=== PATIENT | female | born 2000 | race Caucasian/White ===

== ENCOUNTER → 2023-05-18 15:22 | Outpatient (CLI) | payer OTHER, SELFPAY | PROVIDERS: Visit Provider Physician Assistant | DX: N39.0 Urinary tract infection, site not specified (principal) | CPT/HCPCS: 87077; 87086; 87186 ==

== ENCOUNTER 2024-01-07 18:23 | Emergency (ER) | payer OTHER, SELFPAY ==
[2024-01-07] VITALS (7 sets, daily range): BP systolic 124–141; BP diastolic 84–106; PULSE 64–79; RESP 14–18; TEMP 36.7; O2SAT 97–99; BMI 31.9
[2024-01-07 18:57] LABS: Add Manual Diff / Slide Review NO; Basophils Absolute Auto 100 /uL (0-100); Basophils Percent Auto 0.7 % (0-2); Eosinophils Absolute Auto 100 /uL (0-450); Eosinophils Percent Auto 1.3 % (2-4); Hematocrit 37.8 % (36-46); Lymphocytes Absolute Auto 2000 /uL (1100-4500); Lymphocytes Percent Auto 18.2 % (25-40); Mean Corpuscular HGB Conc 34.4 % (30-36); Mean Corpuscular Hemoglobin 28.7 PG (26-34); Mean Corpuscular Volume 83.4 fL (80-100); Monocytes Absolute Auto 1200 /uL (0-900); Monocytes Percent Auto 10.6 % (3-14); Neutrophils Absolute Auto 7700 /uL (1500-7000); Neutrophils Percent Auto 69.2 % (50-75); Platelet Count 295 X10^3/uL (150-400); Red Blood Cell Count 4.53 X10^6/uL (4.0-5.2); Red Cell Distribution Width 13.1 % (11.6-14.8); White Blood Cell Count 11.1 X10^3/uL (4.5-11.0)
[2024-01-07 19:11] LABS: Alanine Aminotransferase 21 IU/L (<35); Albumin 4.7 g/dL (3.5-5.0); Albumin Globulin Ratio 1.5 (1.0-2.8); Alkaline Phosphatase 68 U/L (38-126); Aspartate Aminotransferase 29 IU/L (14-36); BUN Creatinine Ratio 13.7 (6-22); Bilirubin Total 0.4 mg/dL (0.2-1.3); Blood Urea Nitrogen 10 mg/dL (7-17); Calcium 8.9 mg/dL (8.4-10.2); Carbon Dioxide 25 mmol/L (22-32); Chloride 107 mmol/L (98-107); Estimated Glomerular Filt Rate > 60 mL/min (>60); Globulin 3.2 g/dL (1.7-4.1); Glucose 89 mg/dL (70-100); HEMOLYSIS < 15 (0-50); Lipase 64 U/L (23-300); Sodium 138 mmol/L (137-145); Total Protein 7.9 g/dL (6.3-8.2)
--- NOTE | 2024-01-08 02:42 | ED_ITS ---
HPI - General Adult General Chief complaint: Abdominal Pain Stated complaint: thinks galbladder or appendix, pain Source: patient Mode of arrival: Ambulatory History of Present Illness HPI narrative: 23-year-old female complains of right lower quadrant, left lower quadrant, right upper quadrant discomfort since yesterday, also some right lower back pain. Some nausea without emesis. No loose stools, no black or red stools. Denies vaginal discharge or malodorous discharge. Last menstrual period approximately 1 week and a half ago on time and normal. She does not believe herself to be . She denies injury, trauma, new activities. She has not really tried any medication to help the pain. She denies frequency of urination, change in urination, dark or red color of urine. She denies cough, shortness of breath Related Data Previous Rx's Medication Instructions Recorded phenazopyridine 200 mg tablet 200 mg PO TID PRN pain 6 doses #6 05/18/23 (Pyridium) tabs erythromycin 5 mg/gram (0.5 %) eye 1 applic EYE-BOTH Q6H #3.5 grams 10/18/23 ointment Allergies Allergy/AdvReac Type Severity Reaction Status Date / Time No Known Drug Allergies Allergy Unverified 10/18/23 10:35 Review of Systems Review of Systems ROS Unobtainable: All systems reviewed & are unremarkable except as noted in HPI and below Patient History Social History Smoking Status: Unknown if ever smoked Smoking Status: Unknown if ever smoked alcohol intake frequency: 0-2 drinks per day Substance Use Type: does not use Exam Narrative Exam Narrative: GENERAL: Well-developed patient, in mild distress. HEAD: Atraumatic. Normocephalic. EYES: Pupils equal round and reactive. Extraocular motions intact. No scleral icterus. No injection or drainage. ENT: Nose without bleeding, purulent drainage. Throat without erythema, tonsillar hypertrophy or exudate. Airway patent. NECK: Trachea midline. Non tender CARDIOVASCULAR: Regular rate and rhythm without murmurs, gallops, or rubs. RESPIRATORY: Clear to auscultation. Breath sounds equal bilaterally. No wheezes, rales, or rhonchi. GASTROINTESTINAL: Abdomen soft, non-tender, nondistended. No guarding or rebound tenderness. Abdomen nonrigid. Able to actively sit up and lie back without difficulty or abdominal distress EXTREMITIES: No edema or joint tenderness. BACK: Nontender without deformity or crepitance. No flank tenderness. NEURO: AOx3. SKIN: No rash or erythema of visible areas Initial Vital Signs Initial Vital Signs: Vital Signs Blood Pressure 141/106 H 01/07/24 18:31 Course Orders Ordered: Discontinued Medications Ondansetron HCl (Ondansetron 4 Mg/2 Ml Inj) 4 mg IV NOW PRN PRN Reason: Nausea And Vomiting Vital Signs Vital signs: Vital Signs - 8 hr 01/07/24 19:30 01/07/24 20:32 01/07/24 20:37 Pulse Rate 64 Respiratory Rate 18 Blood Pressure 124/84 Pulse Oximetry 97 99 Medical Decision Making Differential Diagnosis Differential Diagnosis: UTI, ureteral stone, appendicitis, colitis, gallbladder disease, ulcer Medical Records Medical records reviewed: Yes I reviewed the patient's medical records. Lab Data Lab results reviewed: Yes I reviewed the patient's lab results. 01/07/24 18:44 01/07/24 18:44 Labs: Lab Results 01/07/24 Range/Units 18:44 WBC 11.1 H (4.5-11.0) X10^3/uL RBC 4.53 (4.0-5.2) X10^6/uL Hgb 13.0 (12.0-16.0) g/dL Hct 37.8 (36-46) % MCV 83.4 (80-100) fL MCH 28.7 (26-34) PG MCHC 34.4 (30-36) % RDW 13.1 (11.6-14.8) % Plt Count 295 (150-400) X10^3/uL Neut % (Auto) 69.2 (50-75) % Lymph % (Auto) 18.2 L (25-40) % [place]ley % (Auto) 10.6 (3-14) % Eos % (Auto) 1.3 L (2-4) % Baso % (Auto) 0.7 (0-2) % Neut # (Auto) 7700 H (2498-4964) /uL Lymph # (Auto) 2000 (4720-8017) /uL Donley # (Auto) 1200 H (0-900) /uL Eos # (Auto) 100 (0-450) /uL Baso # (Auto) 100 (0-100) /uL Sodium 138 (137-145) mmol/L Potassium 4.0 (3.4-5.1) mmol/L Chloride 107 (98-107) mmol/L Carbon Dioxide 25 (22-32) mmol/L BUN 10 (7-17) mg/dL Creatinine 0.73 (0.52-1.04) mg/dL Estimated GFR > 60 (>60) mL/min BUN/Creatinine Ratio 13.7 (6-22) Glucose 89 (70-100) mg/dL Calcium 8.9 (8.4-10.2) mg/dL Total Bilirubin 0.4 (0.2-1.3) mg/dL AST 29 (14-36) IU/L ALT 21 (<35) IU/L Alkaline Phosphatase 68 (38-126) U/L Total Protein 7.9 (6.3-8.2) g/dL Albumin 4.7 (3.5-5.0) g/dL Globulin 3.2 (1.7-4.1) g/dL Albumin/Globulin Ratio 1.5 (1.0-2.8) Lipase 64 (23-300) U/L Point of Care Testing Test Results Negative Urine Dip Bedside Urine Glucose Negative Bedside Urine Bilirubin - Negative Bedside Urine Ketone - Negative Urine Specific [place] 1.005 Bedside Urine Occult Blood - Negative Bedside Urine pH 6.5 Bedside Urine Protein - Negative Bedside Urine Urobilinogen - Negative Bedside Urine Nitrite - Negative Bedside Urine Leukocytes - Negative Esterase Point of care testing: Point of Care Testing Test Results Negative Urine Dip Bedside Urine Glucose Negative Bedside Urine Bilirubin - Negative Bedside Urine Ketone - Negative Urine Specific [place] 1.005 Bedside Urine Occult Blood - Negative Bedside Urine pH 6.5 Bedside Urine Protein - Negative Bedside Urine Urobilinogen - Negative Bedside Urine Nitrite - Negative Bedside Urine Leukocytes - Negative Esterase [facility] Narrative Medical decision making narrative: 23-year-old female with right lower left lower and right upper quadrant discomfort, initially agreeable to workup, labs sent. However before any results patient decided she would leave against medical advice. Patient seemed to have capacity for making decisions, seem reasonable in her tent to get back to home worse there is no care for other household members, seemed to have good insight into risks of refusal, which could include worsening of condition and injury or worsened condition, was aware that she could return for any change worsening symptoms or any concerns. Patient left against medical advice. Additional Information: Labs reviewed retrospectively as patient had left before any discussion of results. HCG negative. White blood cell count 33516, hemoglobin normal, CMP unremarkable. No imaging, as patient left against medical advice before any test results were available, and options of imaging could be discussed Discharge Plan Departure Patient Disposition: Left Against Medical Advice Clinical Impression: Patient left before treatment completed Prescriptions: No Action phenazopyridine [Pyridium] 200 mg tablet 200 mg PO TID PRN (Reason: pain) Qty: 6 0RF erythromycin 5 mg/gram (0.5 %) ointment 1 applic EYE-BOTH Q6H Qty: 3.5 0RF Stand Alone Forms: Patient Portal/API, Against Medical Advice
== END 2024-01-07 22:36 | disposition left against medical advice (07) ==
PROVIDERS: Emergency Provider Emergency Medicine
DX: R10.84 Generalized abdominal pain (principal); Z53.29 Procedure and treatment not carried out because of patient's decision for other reasons
CPT/HCPCS: 80053; 81003; 81025; 83690; 85025; 99282

== ENCOUNTER → 2024-04-24 15:39 | Outpatient (CLI) | payer OTHER, SELFPAY | PROVIDERS: PCP Nurse Practitioner Family; Visit Provider Nurse Practitioner Family | DX: J02.9 Acute pharyngitis, unspecified (principal) | CPT/HCPCS: 87070 ==

== ENCOUNTER → 2025-01-08 09:36 | Outpatient (CLI) | payer OTHER, SELFPAY ==
--- NOTE | 2025-01-08 | DI.MRI.S_ITS ---
PROCEDURE: MR ANKLE RT WO CON INDICATIONS: ANKLE FX,PRE SURGICAL EVAL TECHNIQUE: Noncontrast sagittal T1 spin echo and T2 fast spin echo with fat saturation, axial proton density fast spin echo and T2 fast spin echo with fat saturation, coronal T1 spin echo and T2 fast spin echo with fat saturation through the ankle/hindfoot. COMPARISON: None. FINDINGS: Image quality: Excellent. Bones and joints: Mild subcutaneous soft tissue edema and swelling surrounding distal lower leg and hindfoot extending to midfoot is seen. No discrete drainable fluid collection. Osteochondral injury involving lateral weight-bearing portion of talar dome is seen measures up to 1.4 x 0.8 x 0.3 cm in size with surrounding edema. There is suggestion of a potentially unstable fragment. Small amount of joint effusion is seen, no loose bodies. Mild edema is also seen involving anterior periphery of distal tibia extending to distal tibial plafond without discrete osteochondral injuries. Similar edema is also noted involving superior weight-bearing portion of the calcaneus adjacent to subtalar joint without discrete fracture line. Medial structures: The posterior tibialis tendon is moderately thickened with small amount of fluid distending tendon sheath at the level of talus and talonavicular joint. The flexor digitorum longus, and flexor hallucis longus tendons are intact. Small to moderate amount of fluid is also seen distending tendon sheath of flexor hallucis longus tendon and flexor digitorum longus tendon at the level of mid to distal talus and talonavicular joint. The posterior tibial neurovascular bundle appears normal within the tarsal tunnel, without extrinsic mass effect. The deltoid ligament and spring ligament are thickened with intrasubstance T2 hyperintense signal. Lateral structures: There is nonvisualization of intact anterior talofibular ligament . The calcaneofibular, and posterior talofibular ligaments appear intact. More superiorly, the anterior and posterior tibiofibular ligaments appear intact, as is the intermalleolar ligament. The tibiofibular syndesmosis is normal in width at 2 mm or less. The peroneus longus and brevis tendons demonstrate normal location and morphology. The sinus tarsi demonstrates normal fatty signal, without edema, fibrosis, or cyst formation. Anterior structures: The tibialis anterior, extensor hallucis longus, and extensor digitorum longus tendons appear intact. The dorsal talonavicular ligament appears intact. Posterior and plantar structures: Significant thickening of distal Achilles tendon at its posterior calcaneal insertion is seen with intrasubstance T2 hyperintense signal. Medial and lateral bands of the plantar fascia are of normal thickness. No abductor digiti quinti muscle atrophy to suggest [place]campo neuropathy. IMPRESSION: 1. Osteochondral injury involving lateral weight-bearing portion of talar dome with potentially unstable fragment as described above. 2. Contusion involving anterior aspect of distal tibia and superior weight-bearing portion of calcaneus adjacent to subtalar joint without discrete fracture line. 3. Small joint effusion, no loose bodies. 4. Moderate tenosynovitis involving posterior tibialis tendon at the level of talus and talonavicular joint. Low-grade tenosynovitis involving flexor digitorum longus and flexor hallucis longus tendons at the level of mid to distal talus and talonavicular joint. 5. Low-grade sprain/intrasubstance partial-thickness tear involving medial ankle ligaments. Rupture of ATFL. 6. Distal Achilles tendinosis at its posterior calcaneal insertion. No Achilles tendon rupture. Dictated by: Alessio Lagunas M.D. on 01/09/2025 at 9:58 Approved by: Alessio Lagunas M.D. on 01/09/2025 at 10:10
== END ==
LOC: MRI 09:37
DX: S92.141A Displaced dome fracture of right talus, initial encounter for closed fracture (principal); S93.491A Sprain of other ligament of right ankle, initial encounter; S80.11XA Contusion of right lower leg, initial encounter; M65.871 Other synovitis and tenosynovitis, right ankle and foot; M25.471 Effusion, right ankle; X58.XXXA Exposure to other specified factors, initial encounter
CPT/HCPCS: 73721

== ENCOUNTER 2025-01-18 06:10 | Day surgery (SDC) | payer OTHER, SELFPAY ==
[2025-01-18] VITALS (8 sets, daily range): BP systolic 102–122; BP diastolic 61–86; PULSE 70–103; RESP 16–20; TEMP 36.3–37.4; O2SAT 93–99; BMI 29.0
[2025-01-18] MEDS: SCOPOLAMINE 1 PATCH TOP (07:04)
[2025-01-18] MEDS: LACTATED RINGERS 1,000 ML 42 ML IV ×2 (07:05→10:40)
[2025-01-18] MEDS: CELECOXIB 200 MG CAPSULE PO (07:07)
[2025-01-18] MEDS: ACETAMINOPHEN 325 MG TABLET 975 MG PO (07:07)
[2025-01-18] MEDS: FAMOTIDINE 20 MG/2 ML VIAL IV (07:08)
--- NOTE | 2025-01-18 07:29 | PM.PREOP ---
Pre-operative Note Interval Note History & Physical reviewed/Exam performed by Physician: Yes Changes to H&P: No
[2025-01-18] MEDS: CEFAZOLIN 2 GM/100 ML PREMIX 100 ML IV (07:55)
--- NOTE | 2025-01-18 08:04 | SUR.OPER ---
Supine on padded OR bed, head on pillow, arms secured on padded arm boards at <90 degrees abduction, legs uncrossed, safety belt at thigh, tape over blanket over lower leg left nonoperative leg, right leg prepped into field
[2025-01-18] MEDS: BUPIVACAINE 0.25% W/ EPI 30 ML VIAL 60 ML INJ (08:12)
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
== END 2025-01-18 12:46 | disposition home or self-care (01) ==
PROVIDERS: Referring Provider Orthopaedic Surgery Foot and Ankle Surgery; Visit Provider Orthopaedic Surgery Foot and Ankle Surgery
PROC: (CPT 28445; principal; 2025-01-18 07:45)
DX: S92.141A Displaced dome fracture of right talus, initial encounter for closed fracture (principal); S93.491A Sprain of other ligament of right ankle, initial encounter; V89.2XXA Person injured in unspecified motor-vehicle accident, traffic, initial encounter; G89.18 Other acute postprocedural pain
CPT/HCPCS: 28445; 27698; 64447; 81025; C1713; C9250; J0690; J1100; J1885; J2250; J2405; J2704; J3010

== ENCOUNTER → 2025-04-18 15:00 | Outpatient (CLI) | payer OTHER, SELFPAY | LOC: WC 15:02 | PROVIDERS: Visit Provider Surgery | DX: T81.31XA Disruption of external operation (surgical) wound, not elsewhere classified, initial encounter (principal); S91.001A Unspecified open wound, right ankle, initial encounter; L98.8 Other specified disorders of the skin and subcutaneous tissue; R23.3 Spontaneous ecchymoses; Z72.0 Tobacco use | CPT/HCPCS: 11042; 97605 ==

== ENCOUNTER → 2025-04-27 13:08 | Outpatient (CLI) | payer OTHER, SELFPAY | LOC: WC 13:08 | PROVIDERS: Visit Provider Physician Assistant | DX: T81.89XA Other complications of procedures, not elsewhere classified, initial encounter (principal); S91.001A Unspecified open wound, right ankle, initial encounter; L98.8 Other specified disorders of the skin and subcutaneous tissue; R23.3 Spontaneous ecchymoses | CPT/HCPCS: 97605 ==

== ENCOUNTER → 2025-05-02 08:39 | Outpatient (CLI) | payer OTHER, SELFPAY | LOC: WC 08:40 | PROVIDERS: Visit Provider Surgery | DX: T81.31XA Disruption of external operation (surgical) wound, not elsewhere classified, initial encounter (principal); S91.001A Unspecified open wound, right ankle, initial encounter; L98.8 Other specified disorders of the skin and subcutaneous tissue; R60.0 Localized edema; Z96.698 Presence of other orthopedic joint implants | CPT/HCPCS: 11042; 97605; 99213 ==

== ENCOUNTER → 2025-05-04 15:03 | Outpatient (CLI) | payer OTHER, SELFPAY | LOC: WC 15:04 | PROVIDERS: Visit Provider Surgery | DX: T81.89XA Other complications of procedures, not elsewhere classified, initial encounter (principal); S91.001A Unspecified open wound, right ankle, initial encounter; R21 Rash and other nonspecific skin eruption; R23.3 Spontaneous ecchymoses | CPT/HCPCS: 97605 ==

== ENCOUNTER → 2025-05-08 10:31 | Outpatient (CLI) | payer OTHER, SELFPAY | PROVIDERS: Visit Provider Chiropractor | DX: R30.0 Dysuria (principal) | CPT/HCPCS: 87086 ==

== ENCOUNTER → 2025-05-09 09:00 | Outpatient (CLI) | payer OTHER, SELFPAY | LOC: WC 09:01 | PROVIDERS: Visit Provider Surgery | DX: T81.31XA Disruption of external operation (surgical) wound, not elsewhere classified, initial encounter (principal); S91.011A Laceration without foreign body, right ankle, initial encounter; R60.0 Localized edema; B35.9 Dermatophytosis, unspecified | CPT/HCPCS: 11042; 87070; 87205; 99213 ==

== ENCOUNTER → 2025-05-09 10:13 | Outpatient (CLI) | payer OTHER, SELFPAY ==
[2025-05-09 11:30] LABS: Alanine Aminotransferase 30 IU/L (<35); Albumin 4.8 g/dL (3.5-5.0); Albumin Globulin Ratio 1.5 (1.0-2.8); Alkaline Phosphatase 68 U/L (38-126); Blood Urea Nitrogen 10 mg/dL (7-17); Calcium 9.7 mg/dL (8.4-10.2); Carbon Dioxide 26 mmol/L (22-32); Chloride 103 mmol/L (98-107); Estimated Glomerular Filt Rate > 60 mL/min (>60); Globulin 3.2 g/dL (1.7-4.1); Glucose 92 mg/dL (70-99); HEMOLYSIS < 15 (0-50); Potassium 4.5 mmol/L (3.4-5.1); Sodium 138 mmol/L (137-145); Total Protein 8.0 g/dL (6.3-8.2)
[2025-05-09 11:36] LABS: Add Manual Diff / Slide Review NO; Hematocrit 39.9 % (36-46); Hemoglobin 13.9 g/dL (12.0-16.0); Lymphocytes Absolute Auto 1700 /uL (1100-4500); Mean Corpuscular HGB Conc 34.8 % (30-36); Mean Corpuscular Hemoglobin 28.9 PG (26-34); Mean Corpuscular Volume 83.1 fL (80-100); Platelet Count 298 X10^3/uL (150-400)
== END ==
PROVIDERS: Internal Medicine Infectious Disease; Referring Provider Surgery; Visit Provider Surgery
DX: T81.49XA Infection following a procedure, other surgical site, initial encounter (principal); T81.31XA Disruption of external operation (surgical) wound, not elsewhere classified, initial encounter; S91.011A Laceration without foreign body, right ankle, initial encounter; R60.0 Localized edema; B35.9 Dermatophytosis, unspecified
CPT/HCPCS: 36415; 80053; 85025; 87070; 87205

== ENCOUNTER → 2025-05-11 12:45 | Outpatient (CLI) | payer OTHER, SELFPAY | LOC: WC 12:45 | PROVIDERS: Visit Provider Surgery | DX: T81.89XA Other complications of procedures, not elsewhere classified, initial encounter (principal); S91.001A Unspecified open wound, right ankle, initial encounter; R60.0 Localized edema; R21 Rash and other nonspecific skin eruption | CPT/HCPCS: 99212 ==

== ENCOUNTER → 2025-05-16 08:31 | Outpatient (CLI) | payer OTHER, SELFPAY | LOC: WC 08:34 | PROVIDERS: Visit Provider Surgery | DX: T81.31XA Disruption of external operation (surgical) wound, not elsewhere classified, initial encounter (principal); S91.011A Laceration without foreign body, right ankle, initial encounter; R60.0 Localized edema; R21 Rash and other nonspecific skin eruption | CPT/HCPCS: 11042 ==

== ENCOUNTER → 2025-05-18 13:54 | Outpatient (CLI) | payer OTHER, SELFPAY | LOC: WC 13:54 | PROVIDERS: Visit Provider Surgery | DX: T81.89XA Other complications of procedures, not elsewhere classified, initial encounter (principal); S91.001A Unspecified open wound, right ankle, initial encounter; R60.0 Localized edema; R21 Rash and other nonspecific skin eruption | CPT/HCPCS: 99213 ==

== ENCOUNTER → 2025-05-23 08:45 | Outpatient (CLI) | payer OTHER, SELFPAY | LOC: WC 08:45 | PROVIDERS: Visit Provider Surgery | DX: T81.31XA Disruption of external operation (surgical) wound, not elsewhere classified, initial encounter (principal); S91.001A Unspecified open wound, right ankle, initial encounter; L98.8 Other specified disorders of the skin and subcutaneous tissue; R21 Rash and other nonspecific skin eruption; R60.0 Localized edema; Z96.698 Presence of other orthopedic joint implants | CPT/HCPCS: 11042 ==

== ENCOUNTER → 2025-05-30 15:55 | Outpatient (CLI) | payer OTHER, SELFPAY | LOC: WC 15:56 | PROVIDERS: Visit Provider Surgery | DX: T81.31XA Disruption of external operation (surgical) wound, not elsewhere classified, initial encounter (principal); S91.001A Unspecified open wound, right ankle, initial encounter; L98.8 Other specified disorders of the skin and subcutaneous tissue; R21 Rash and other nonspecific skin eruption; R60.0 Localized edema; Z72.0 Tobacco use; Z96.698 Presence of other orthopedic joint implants | CPT/HCPCS: 11042; 99213 ==

== ENCOUNTER → 2025-06-06 08:53 | Outpatient (CLI) | payer OTHER, SELFPAY | LOC: WC 08:55 | PROVIDERS: Referring Provider Orthopaedic Surgery Foot and Ankle Surgery; Visit Provider Surgery | DX: T81.89XA Other complications of procedures, not elsewhere classified, initial encounter (principal); L98.8 Other specified disorders of the skin and subcutaneous tissue; S91.001A Unspecified open wound, right ankle, initial encounter; R60.0 Localized edema; R23.4 Changes in skin texture | CPT/HCPCS: 11042 ==

== ENCOUNTER → 2025-06-13 09:01 | Outpatient (CLI) | payer OTHER, SELFPAY | PROVIDERS: Visit Provider Surgery | DX: T81.89XA Other complications of procedures, not elsewhere classified, initial encounter (principal); S91.011A Laceration without foreign body, right ankle, initial encounter; L53.8 Other specified erythematous conditions; R23.4 Changes in skin texture; R60.0 Localized edema; R21 Rash and other nonspecific skin eruption | CPT/HCPCS: 11042; 87070; 87075; 87205 ==

== ENCOUNTER → 2025-06-13 09:19 | Outpatient (CLI) | payer OTHER, SELFPAY ==
--- NOTE | 2025-06-13 09:21 | DI.RAD.S_ITS ---
PROCEDURE: XR ANKLE RT MIN 3V INDICATIONS: eval for osteo TECHNIQUE: 3 views of the ankle were acquired. COMPARISON: [facility], CR, XR ANKLE 3 VIEWS WEIGHT BEARING RIGHT, 03/16/2025, 13:56. FINDINGS: Bones: No fractures or dislocations. Ankle mortise is normally aligned. No suspicious bony lesions. Soft tissues: No tibiotalar joint effusion. Achilles tendon appears normal. IMPRESSION: No acute osseous abnormality. No erosive changes are seen. If pain persists with conservative management, consider repeat x-ray in 10-14 days or cross-sectional imaging. Dictated by: Leander Abreu M.D. on 06/13/2025 at 9:42 Approved by: Leander Abreu M.D. on 06/13/2025 at 9:43
== END ==
PROVIDERS: Visit Provider Surgery
DX: T81.89XA Other complications of procedures, not elsewhere classified, initial encounter (principal); S91.011A Laceration without foreign body, right ankle, initial encounter; L08.9 Local infection of the skin and subcutaneous tissue, unspecified; L53.8 Other specified erythematous conditions; R23.4 Changes in skin texture; R21 Rash and other nonspecific skin eruption; R60.0 Localized edema
CPT/HCPCS: 11042; 73610; 87070; 87205

== ENCOUNTER → 2025-06-20 15:35 | Outpatient (CLI) | payer OTHER, SELFPAY | LOC: WC 15:36 | PROVIDERS: Visit Provider Surgery | DX: T81.89XA Other complications of procedures, not elsewhere classified, initial encounter (principal); L98.8 Other specified disorders of the skin and subcutaneous tissue; S91.001A Unspecified open wound, right ankle, initial encounter; R60.0 Localized edema; L53.9 Erythematous condition, unspecified | CPT/HCPCS: 11042 ==

== ENCOUNTER → 2025-06-27 09:04 | Outpatient (CLI) | payer OTHER, SELFPAY | LOC: WC 09:05 | PROVIDERS: Visit Provider Surgery | DX: T81.31XA Disruption of external operation (surgical) wound, not elsewhere classified, initial encounter (principal); R21 Rash and other nonspecific skin eruption; R60.0 Localized edema; F17.290 Nicotine dependence, other tobacco product, uncomplicated | CPT/HCPCS: 11042; 99213 ==

== ENCOUNTER → 2025-07-01 08:00 | Outpatient (CLI) | payer OTHER, SELFPAY ==
[2025-07-01 10:20] LABS: Add Manual Diff / Slide Review NO; Hematocrit 40.3 % (36-46); Hemoglobin 14.1 g/dL (12.0-16.0); Lymphocytes Absolute Auto 1600 /uL (1100-4500); Mean Corpuscular HGB Conc 35.0 % (30-36); Mean Corpuscular Hemoglobin 28.9 PG (26-34); Mean Corpuscular Volume 82.6 fL (80-100); Platelet Count 315 X10^3/uL (150-400)
[2025-07-01 10:33] LABS: Alanine Aminotransferase 16 IU/L (<35); Albumin 5.0 g/dL (3.5-5.0); Albumin Globulin Ratio 1.4 (1.0-2.8); Alkaline Phosphatase 67 U/L (38-126); Globulin 3.5 g/dL (1.7-4.1); HEMOLYSIS < 15 (0-50); Total Protein 8.5 g/dL (6.3-8.2)
== END ==
PROVIDERS: Referring Provider Internal Medicine Infectious Disease; Visit Provider Internal Medicine Infectious Disease
DX: T81.49XA Infection following a procedure, other surgical site, initial encounter (principal)
CPT/HCPCS: 36415; 80076; 85025; 86140

== ENCOUNTER → 2025-07-04 09:10 | Outpatient (CLI) | payer OTHER, SELFPAY | LOC: WC 09:10 | PROVIDERS: Visit Provider Surgery | DX: T81.31XA Disruption of external operation (surgical) wound, not elsewhere classified, initial encounter (principal); S91.011A Laceration without foreign body, right ankle, initial encounter; L53.8 Other specified erythematous conditions; R23.4 Changes in skin texture; R21 Rash and other nonspecific skin eruption; R60.0 Localized edema | CPT/HCPCS: 11042 ==

== ENCOUNTER → 2025-07-11 10:03 | Outpatient (CLI) | payer OTHER, SELFPAY | LOC: WC 10:03 | PROVIDERS: Visit Provider Surgery | DX: T81.89XA Other complications of procedures, not elsewhere classified, initial encounter (principal); S91.011A Laceration without foreign body, right ankle, initial encounter; L53.8 Other specified erythematous conditions; R23.4 Changes in skin texture | CPT/HCPCS: 11042 ==

== ENCOUNTER → 2025-07-25 09:09 | Outpatient (CLI) | payer OTHER, SELFPAY | LOC: WC 09:10 | PROVIDERS: Visit Provider Surgery | DX: T81.31XA Disruption of external operation (surgical) wound, not elsewhere classified, initial encounter (principal); S91.011A Laceration without foreign body, right ankle, initial encounter; R21 Rash and other nonspecific skin eruption; R60.0 Localized edema | CPT/HCPCS: 97597; 99213 ==

== ENCOUNTER → 2025-08-01 08:45 | Outpatient (CLI) | payer OTHER, SELFPAY | LOC: WC 08:45 | PROVIDERS: Visit Provider Surgery | DX: T81.89XA Other complications of procedures, not elsewhere classified, initial encounter (principal); L98.8 Other specified disorders of the skin and subcutaneous tissue; S91.001A Unspecified open wound, right ankle, initial encounter; R60.0 Localized edema | CPT/HCPCS: 11042 ==

== ENCOUNTER → 2025-08-08 09:23 | Outpatient (CLI) | payer OTHER, SELFPAY | LOC: WC 09:25 | PROVIDERS: Referring Provider Orthopaedic Surgery Foot and Ankle Surgery; Visit Provider Surgery | DX: S91.011A Laceration without foreign body, right ankle, initial encounter (principal); T81.31XA Disruption of external operation (surgical) wound, not elsewhere classified, initial encounter; R60.0 Localized edema; R23.4 Changes in skin texture; R21 Rash and other nonspecific skin eruption | CPT/HCPCS: 99212; 99213 ==

== ENCOUNTER → 2025-08-15 12:51 | Outpatient (CLI) | payer OTHER, SELFPAY | LOC: WC 12:52 | PROVIDERS: Visit Provider Surgery | DX: S91.011D Laceration without foreign body, right ankle, subsequent encounter (principal); R21 Rash and other nonspecific skin eruption; R60.0 Localized edema; R23.4 Changes in skin texture | CPT/HCPCS: 99212; 99213 ==